=== PATIENT | female | born 1950 | race Caucasian/White ===

== ENCOUNTER 2020-07-02 08:05 | Day surgery (SDC) | payer MEDICARE, OTHER ==
[~2020-07-02 08:05] MED LIST: DIPRIVAN 200 MG/20 ML IV ONE; Ketamine HCl 50 MG/ML ONE
[2020-07-02] MEDS ORDERED: LIDOCAINE HCL 2% 100 MG/5 ML IJ ONE (08:06)
[2020-07-02] MEDS ORDERED: Depo-Medrol 40 MG/ML IM ONE (08:06)
--- NOTE | 2020-07-02 12:08 | XRAY ---
Indication: Bilateral L4-S1 MBB. Intraoperative fluoroscopy was provided for 13 seconds. Single digital spot image submitted for interpretation demonstrates posterior needle tips projecting over the expected left and right L4-S1 nerve roots. Correlate with intraoperative findings/report.
[2020-07-02] MEDS ORDERED: Lactated Ringers 1,000 ML IV ONE (13:47)
--- NOTE | 2020-07-02 16:55 | XRAY ---
13 seconds of fluoroscopy was used in surgery for a bilateral L4-L5, L5-S1 MBB.
== END 2020-07-02 10:03 | disposition home or self-care (01) ==
LOC: SDC-PAIN 08:05
PROVIDERS: ATTEND Psychiatry & Neurology Pain Medicine
DX: M47.817 Spondylosis without myelopathy or radiculopathy, lumbosacral region (principal); E11.9 Type 2 diabetes mellitus without complications; I10 Essential (primary) hypertension; K21.9 Gastro-esophageal reflux disease without esophagitis; F41.8 Other specified anxiety disorders; I25.10 Atherosclerotic heart disease of native coronary artery without angina pectoris; Z79.899 Other long term (current) drug therapy
CPT/HCPCS: 64493; 64494; 72020; 77002; 82962; 99100; J1030; J2704

== ENCOUNTER 2020-07-23 10:01 | Day surgery (SDC) | payer MEDICARE, OTHER ==
[2020-07-23] MEDS ORDERED: BUPIVACAINE 0.5% VIAL IJ ONE (10:02)
[2020-07-23] MEDS ORDERED: Depo-Medrol 40 MG/ML IM ONE (10:02)
[2020-07-23] MEDS ORDERED: DIPRIVAN 200 MG/20 ML IV ONE (11:01)
[2020-07-23] MEDS ORDERED: Ketamine HCl 50 MG/ML ONE (11:03)
--- NOTE | 2020-07-23 12:09 | XRAY ---
Indication: Bilateral SI joint injection. Intraoperative fluoroscopy was provided for 27 seconds. 4 digital spot images submitted for interpretation demonstrates posterior needle tip projecting over the inferior left and right SI joint. Correlate with intraoperative findings/report.
--- NOTE | 2020-07-23 12:21 | XRAY ---
27 seconds fluoroscopy time in surgery for bilateral SI joint injections.
[2020-07-23] MEDS ORDERED: Lactated Ringers 1,000 ML IV ONE (15:14)
== END 2020-07-23 11:26 | disposition home or self-care (01) ==
LOC: SDC-PAIN 10:01
PROVIDERS: ATTEND Psychiatry & Neurology Pain Medicine
DX: M46.1 Sacroiliitis, not elsewhere classified (principal); E11.9 Type 2 diabetes mellitus without complications; I10 Essential (primary) hypertension; K21.9 Gastro-esophageal reflux disease without esophagitis; F41.8 Other specified anxiety disorders; Z79.899 Other long term (current) drug therapy
CPT/HCPCS: 27096; 72202; 77002; 82947; 82962; 99100; J1030; J2704; G0260

== ENCOUNTER 2023-03-18 10:28 | Emergency (ER) | payer MEDICARE, OTHER ==
--- NOTE | 2023-03-18 10:40 | ERPHSYRPT ---
- History of Present Illness Time Seen by Provider: 03/18/23 10:40 Source: patient Exam Limitations: no limitations Physician History: This is a 72-year-old white female patient who excellently slipped and fell in the shower hitting her left side of her head. There was no loss of consciousness. Patient is on Plavix and aspirin and she hit her left ear as well. It is bruised, swollen and a braised. Patient denies syncopal episode, she denies chest pain, she denies abdominal pain. She denies back pain. She does not have any shortness of breath. Patient has a history of hypertension, hyperlipidemia, hypothyroidism, and diabetes. Patient has [address] She also has a history abdominal aortic aneurysm. Occurred: just prior to arrival Reason for Fall: slipped (In the shower) Injuries/Pain Location: head (left side) Loss of Consciousness: no loss of consciousness Quality: aching Severity of Pain-Max: mild Severity of Pain-Current: mild Modifying Factors: Improves With: nothing Associated Symptoms (Fall): headache, neck pain (Mild), No abdominal pain, No back pain, No confusion, No chest pain, No shortness of breath Allergies/Adverse Reactions: Penicillins Allergy (Verified 03/18/23 10:36) Sulfa (Sulfonamide Antibiotics) Allergy (Verified 03/18/23 10:36) Home Medications: Aspirin 81 gm Chew [Baby Aspirin 81 mg Chew] 81 mg PO DAILY 12/12/14 [History] Carvedilol 3.125 mg [Coreg 3.125 MG] 6.25 mg PO BID 12/12/14 [History] Clopidogrel Bisulfate [PLAVIX 75 MG Tablet] 75 mg PO DAILY 12/12/14 [History] Fluoxetine HCl 40 mg PO DAILY 12/12/14 [History] Glucosam/Chondr/Collagn/Hyalur [Glucosamine & Chondroitin Cap] 1 each PO BID 12/12/14 [History] Hydralazine HCl 100 mg PO TID 12/12/14 [History] Levothyroxine Sodium 25 Mcg [Synthroid 25 Mcg] 125 mcg PO DAILY 12/12/14 [History] Losartan Potassium 50 mg PO BID 12/12/14 [History] Multivitamin [Multivitamins] 1 each PO DAILY 12/12/14 [History] Pravastatin Sodium 80 mg PO DAILY 12/12/14 [History] Ranolazine [Ranexa] 500 mg PO BID 12/12/14 [History] Amlodipine Besylate 5 mg [Norvasc 5 mg] 1 tab PO DAILY 03/18/23 [History] Cholecalciferol (Vitamin D3) [Vitamin D] 2,000 units PO DAILY 03/18/23 [History] Cyanocobalamin (Vitamin B-12) [Vitamin B12] 5,000 mcg PO DAILY 03/18/23 [History] Ezetimibe 10 mg [Zetia 10 MG] 1 tab PO DAILY 03/18/23 [History] Lutein [Natural Lutein] 1 tab PO DAILY 03/18/23 [History] [place]-3/Dha/Epa/Fish Oil [Fish Oil 1,000 mg Softgel] 1 tab PO BID 03/18/23 [History] Semaglutide [Ozempic] 2 mg SQ WEEKLY 03/18/23 [History] Terazosin HCl 1 cap PO DAILY 03/18/23 [History] Hx Tetanus, Diphtheria Vaccination/Date Given: Yes (PT UNSURE) Hx Influenza Vaccination/Date Given: Yes (2013) Hx Pneumococcal Vaccination/Date Given: Yes Travel Risk - International Travel Have you traveled outside of the country in past 3 weeks: No - Coronavirus Screening Are you exhibiting any of the following symptoms?: No Close contact with a COVID-19 positive Pt in past 14-21 Days: No - Review of Systems Constitutional: No Symptoms Eyes: No Symptoms Ears, Nose, & Throat: Ear Pain (Left side) Respiratory: No Symptoms Cardiac: No Symptoms Abdominal/Gastrointestinal: No Symptoms Genitourinary Symptoms: No Symptoms Musculoskeletal: Neck Pain, Fall (Mild) Skin: No Symptoms Neurological: Headache (Left side) Psychological: No Symptoms Endocrine: No Symptoms Hematologic/Lymphatic: No Symptoms Immunological/Allergic: No Symptoms All Other Systems: Reviewed and Negative - Past Medical History Pertinent Past Medical History: Yes Neurological History: No Pertinent History Cardiac History: Hypertension Respiratory History: Other Endocrine Medical History: Diabetes Type II, Hypothyroidism Musculoskeletal History: Osteoarthritis Other Medical History: SHE IS GOING TO START WITH A NEUROLOGIST FOR INNER EAR PROBLEMS. SHE WONT SEE THE DOCTOR UNTIL April. SOB AT TIMES. AORTIC ANEURYSM, 4 STINTS, POSSIBLE [place]. BACK SURGERY FOR A RUPTURED DISC. - Past Surgical History Past Surgical History: Yes Cardiac: Cardiac Catheterization, Cardiac Stent Musculoskeletal: Orthopedic Surgery Female Surgical History: Hysterectomy - Social History Smoking Status: Former smoker Exposure to second hand smoke: No Drug Use: none Patient Lives Alone: No - Nursing Vital Signs Nursing Vital Signs: Initial Vital Signs Blood Pressure 137/54 03/18/23 10:44 O2 Sat by Pulse Oximetry 96 03/18/23 10:44 Pain Scale Pain Intensity 4 - Blue Coma Score Best Eye Response ([place]): (4) open spontaneously Best Verbal Response (Blue): (5) oriented Best Motor Response (Blue): (6) obeys commands [place] Total: 15 - Physical Exam General Appearance: no apparent distress, alert, anxiety Head Injury: tenderness (Left ear swollen with two 2 to 3 mm superficial abrasions of the diana) Eye Exam: PERRL/EOMI, eyes nml inspection ENT Exam: airway nml, other (See above) Neck Exam: supple, trachea midline, full range of motion, normal alignment, normal inspection Respiratory/Chest Exam: normal breath sounds, No chest tenderness, No respiratory distress, No ecchymosis, No crepitus Cardiovascular Exam: normal heart sounds, regular rate/rhythm Gastrointestinal Exam: No tenderness Rectal Exam: not done Back Exam: normal inspection, normal range of motion, No CVA tenderness, No vertebral tenderness Extremity Exam: normal inspection, normal range of motion, pelvis stable Neurologic Exam: alert, oriented x 3, cooperative, chief growth officer II-XII nml as tested, normal mood/affect, nml cerebellar function, nml station & gait, sensation nml Skin Exam: normal color, warm, dry, abrasion (See above. Left ear) SpO2 Interpretation: normal O2 Delivery: Room Air - Course Nursing assessment & vital signs reviewed: Yes Ordered Tests: Active Orders 24 hr Category Date Time Status CERVICAL SPINE (2 OR 3 VIEW) Stat Exams 03/18/23 12:48 Completed CERVICAL SPINE WO CONTRAST [CT] Stat Exams 03/18/23 10:59 Completed HEAD WITHOUT CONTRAST [CT] Stat Exams 03/18/23 10:59 Completed - Progress Progress: pain not gone completely, re-examined Progress Note: 03/18/23 11:25 This patient's medical issue is 1 of mod complexity. The level of complexity and the work-up performed is based on review of the patient's past medical history, review of the patient's medication list, review of the patient's drug allergy list, history present illness and physical findings on examination. This patient's work-up includes CT scan of the head and of the neck. The results are pending. 03/18/23 12:11 CT scan of the head without contrast shows no acute intracranial abnormality. CT scan of the cervical spine without contrast shows nondisplaced hairline fractures posterior lateral lamina of C2 bilaterally. There is lordotic straightening positional versus paraspinal spasm. Remaining levels are negative for acute fracture. There are no suspicious bony lesions or spinal canal stenosis. There are degenerative changes present. 03/18/23 12:[address] Brito, the neurosurgeon applications architect at [facility] in [place]. He had reviewed the films. He states that the patient should receive the [place] cervical collar to shower in. In addition she should receive a hard cervical collar. Both collar should not rise above the chin. I discussed this with the patient. He also wants an upright cervical spine x-rays with the hard collar in place to assess the alignment of the spine. If the alignment is normal, the patient may be discharged home with instruction to follow-up at the [facility] neurosurgery trauma clinic. We will contact that clinic and make an appointment for her. Patient was also made aware that she is not to lift more than 5 pounds and not engage in strenuous activity. Again, the above was discussed with the patient prior to her discharge from the emergency department. Counseled pt/family regarding: diagnosis, need for follow-up, rad results Medical Desision Making - Discussion of managment Care discussed with:: specialist (Neurosurgeon Dr. Brito) Agreed on:: Treatment plan, need for follow-up Will see patient: In office (Neurosurgery trauma clinic. The clinic will be contacting the patient to arrange clinic appointment.) - Diagnostic Testing Diagnostic test were ordered, analyzed, and reviewed by me: Yes Radiological Interpretation: Reviewed by me, Teleradiologist Report - Risk of complications The pt has a mod risk of morbidity or mortality based on: Need for prescription drug management - Departure Departure Disposition: Home Clinical Impression: Cervical spine fracture Condition: Stable Critical Care Time: No Referrals: CESAR SCHAFFER MD [Primary Care Provider] - Follow up/PCP as directed Instructions: Neck Fracture (DC), Preventing Falls ED Additional Instructions: Ice pack to tender left ear 3 times a day. Keep the abrasion site clean daily with soap and water. May apply antibiotic ointment once a day to the abrasion sites. Wear your cervical spine collars as discussed. Follow-up with [facility] neurosurgery trauma clinic at your scheduled date and appointment. Take your pain medicine as prescribed. No lifting greater than 5 pounds until cleared by neurosurgery. No strenuous activity until cleared by neurosurgery. The neurosurgery trauma clinic at [facility] phone number is [phone]. They are aware of you and your condition. They have your contact information and they are to call you to set up an appointment date and time. Dr. Brito was the physician we spoke to at [facility] in [place] Prescriptions: Oxycodone HCl/Acetaminophen [Percocet 5-325 mg Tablet] 1 each PO Q8H PRN PRN #6 tablet MDD 3 PRN Reason: Moderate To Severe Pain
--- NOTE | 2023-03-18 11:45 | XRAY ---
Indication: Left temporal head injury following fall. Blood thinner therapy. Multiple contiguous axial images obtained through the head without contrast. Comparison: None Normal appearing brain parenchyma, ventricles, and bony calvarium for patient's age. Visualized paranasal sinuses and mastoid air cells are clear. Impression: Normal CT head without contrast exam.
--- NOTE | 2023-03-18 11:53 | XRAY ---
Indication: Left temporal head injury following fall. Blood thinner therapy. Multiple contiguous axial images obtained through the cervical spine. Sagittal and coronal reformatted images obtained. Comparison: None Osseous structures demineralized consistent with patient's age. Axial images demonstrates nondisplaced hairline fractures posterior lateral lamina of C2 bilaterally. Remaining levels negative for acute fracture, suspicious bony lesions, or spinal canal stenosis. Minimal/mild C2-C7 degenerative endplate spurring and mild multilevel bilateral degenerative facet hypertrophy. Sagittal and coronal reformatted images demonstrates lordotic straightening, positional versus paraspinal spasm. 2 mm anterolisthesis C4 on C5. Minimal/mild C2-C7 disc space narrowing. No acute compression fracture or jumped facet. Normal appearing craniocervical junction. Visualized noncontrasted soft tissues demonstrates mild bilateral carotid calcifications. Lung apices clear. Impression: 1. Nondisplaced hairline fractures posterior lateral lamina of C2 bilaterally. Lordotic straightening, positional vs paraspinal spasm. 2. Chronic findings including osteopenia, multilevel degenerative spondylosis, minimal grade 1 spondylolisthesis C4 on C5, and bilateral carotid calcifications.
--- NOTE | 2023-03-18 13:25 | XRAY ---
Indication: C2 fracture. Comparison: CT cervical spine performed earlier in the day. AP/lateral cervical spine obtained with cervical collar in position again demonstrates osteopenia and mild/moderate multilevel degenerative changes. No new bony, articular, or soft tissue abnormalities.
[2023-03-18 13:55] VITALS: BP 161/69; PULSE 88; O2SAT 98
== END 2023-03-18 13:54 | disposition home or self-care (01) ==
LOC: ED 10:28
DX: S12.191A Other nondisplaced fracture of second cervical vertebra, initial encounter for closed fracture (principal); W18.2XXA Fall in (into) shower or empty bathtub, initial encounter; Y93.E1 Activity, personal bathing and showering; Y92.002 Bathroom of unspecified non-institutional (private) residence as the place of occurrence of the external cause; R51.9 Headache, unspecified; H92.02 Otalgia, left ear; I10 Essential (primary) hypertension; E78.5 Hyperlipidemia, unspecified; E11.9 Type 2 diabetes mellitus without complications; Z79.02 Long term (current) use of antithrombotics/antiplatelets; Z79.85 Long-term (current) use of injectable non-insulin antidiabetic drugs; Z79.899 Other long term (current) drug therapy
CPT/HCPCS: 70450; 72040; 72125; 99283; L0172

== ENCOUNTER 2024-10-17 14:03 | Emergency (ER) | payer MEDICARE, OTHER ==
[2024-10-17 16:37] VITALS: PULSE 62; TEMP 98.3
--- NOTE | 2024-10-17 17:21 | ERPHSYRPT ---
- History of Present Illness Time Seen by Provider: 10/17/24 16:33 Source: patient Exam Limitations: no limitations Patient Subjective Stated Complaint: pt turned around in her kitchen and fell and busted her right side of forehead open Triage Nursing Assessment: Pt brought self to the ER, hypertensive, rates pain as 2/10, pulses normal, skin n/w/d, denies LOC, denies N&V, no difficulty breathing, approx 1 cm laceration to the right lateral forehead, doesn't appear to be in any distress Physician History: 74 years old female with history of coronary artery disease status post stenting, hypertension, hyperlipidemia, diabetes mellitus, peripheral neuropathy, was putting some stuff in the oven, turned around and lost balance leading to fall. She has a laceration on the right orbital ridge area. Denies any loss of consciousness. Patient denies having numbness tingling or focal weakness. She denies having feeling of dizziness lightheadedness, chest pain palpitations or shortness of breath before or after the fall. No visual changes or difficulty movements of eyeball. No facial numbness or difficulty speech. Allergies/Adverse Reactions: Penicillins Allergy (Verified 10/17/24 16:37) Sulfa (Sulfonamide Antibiotics) Allergy (Verified 10/17/24 16:37) Home Medications: Aspirin 81 gm Chew [Baby Aspirin 81 mg Chew] 81 mg PO DAILY 12/12/14 [History] Carvedilol 3.125 mg [Coreg 3.125 MG] 6.25 mg PO BID 12/12/14 [History] Clopidogrel Bisulfate [PLAVIX 75 MG Tablet] 75 mg PO DAILY 12/12/14 [History] Fluoxetine HCl 40 mg PO DAILY 12/12/14 [History] Glucosam/Chondr/Collagn/Hyalur [Glucosamine & Chondroitin Cap] 1 each PO BID 12/12/14 [History] Hydralazine HCl 100 mg PO TID 12/12/14 [History] Levothyroxine Sodium 25 Mcg [Synthroid 25 Mcg] 125 mcg PO DAILY 12/12/14 [History] Losartan Potassium 50 mg PO BID 12/12/14 [History] Multivitamin [Multivitamins] 1 each PO DAILY 12/12/14 [History] Pravastatin Sodium 80 mg PO DAILY 12/12/14 [History] Ranolazine [Ranexa] 500 mg PO BID 12/12/14 [History] Amlodipine Besylate 5 mg [Norvasc 5 mg] 1 tab PO DAILY 03/18/23 [History] Cholecalciferol (Vitamin D3) [Vitamin D] 2,000 units PO DAILY 03/18/23 [History] Cyanocobalamin (Vitamin B-12) [Vitamin B12] 5,000 mcg PO DAILY 03/18/23 [History] Ezetimibe 10 mg [Zetia 10 MG] 1 tab PO DAILY 03/18/23 [History] Lutein [Natural Lutein] 1 tab PO DAILY 03/18/23 [History] [place]-3/Dha/Epa/Fish Oil [Fish Oil 1,000 mg Softgel] 1 tab PO BID 03/18/23 [History] Semaglutide [Ozempic] 2 mg SQ WEEKLY 03/18/23 [History] Terazosin HCl 1 cap PO DAILY 03/18/23 [History] Hx Tetanus, Diphtheria Vaccination/Date Given: Yes (PT UNSURE) Hx Influenza Vaccination/Date Given: Yes (2013) Hx Pneumococcal Vaccination/Date Given: Yes Travel Risk - International Travel Have you traveled outside of the country in past 3 weeks: No - Emerging Infectious Disease Are you exhibiting symptoms associated with any current EIDs: No - Review of Systems Constitutional: No Symptoms Eyes: No Symptoms Ears, Nose, & Throat: No Symptoms Respiratory: No Symptoms Cardiac: No Symptoms Abdominal/Gastrointestinal: No Symptoms Genitourinary Symptoms: No Symptoms Musculoskeletal: Fall, Injury Skin: Skin Lesions Neurological: Headache Endocrine: No Symptoms Hematologic/Lymphatic: No Symptoms - Past Medical History Pertinent Past Medical History: Yes Neurological History: No Pertinent History Cardiac History: Hypertension Respiratory History: Other Endocrine Medical History: Diabetes Type II, Hypothyroidism Musculoskeletal History: Osteoarthritis Psycho-Social History: Anxiety, Depression Other Medical History: AORTIC ANEURYSM, 4 STINTS, POSSIBLE [place] BACK SURGERY FOR A RUPTURED DISC. - Past Surgical History Past Surgical History: Yes Cardiac: Cardiac Catheterization, Cardiac Stent Musculoskeletal: Orthopedic Surgery Female Surgical History: Hysterectomy Other Surgical History: BACK SURGERY FOR A RUPTURED DISC. - Social History Smoking Status: Former smoker Exposure to second hand smoke: No Drug Use: none Patient Lives Alone: No - Social Determinants of Health Will the patient participate in the screening: Yes Do you worry about a steady place to live?: No Do you have any problems with any of the following?: No known problems In the past 12 months,have you had to go without utilities?: No Transportation Issues: No Has anyone in your support network made you feel unsafe?: No Have you or anyone in your house had to go without enough: No - Nursing Vital Signs Nursing Vital Signs: Initial Vital Signs Temperature 98.3 F 10/17/24 16:29 Pulse Rate 62 10/17/24 16:29 Blood Pressure 160/76 10/17/24 16:29 O2 Sat by Pulse Oximetry 97 10/17/24 16:29 Pain Scale Pain Intensity 2 - Blue Coma Score Best Eye Response ([place]): (4) open spontaneously Best Verbal Response ([place]): (5) oriented Best Motor Response ([place]): (6) obeys commands [place] Total: 15 - Physical Exam General Appearance: no apparent distress, alert Head Injury: lacerations (2 cm laceration lateral right eyebrow area. No active spurting or oozing. No step in deformity. Intact range of motion of [place]) Eye Exam: PERRL/EOMI, eyes nml inspection, No scleral icterus ENT Exam: airway nml, No evidence of ENT injury, No dental injury Neck Exam: supple, trachea midline, full range of motion, normal alignment, normal inspection Respiratory/Chest Exam: normal breath sounds, respiratory distress, No chest t enderness Cardiovascular Exam: normal heart sounds, regular rate/rhythm Gastrointestinal Exam: soft, normal bowel sounds, No tenderness Back Exam: normal inspection, normal range of motion Extremity Exam: normal inspection, normal range of motion Neurologic Exam: alert, oriented x 3, cooperative, excellence leader II-XII nml as tested, nml cerebellar function, nml station & gait, sensation nml, No motor deficits Skin Exam: normal color SpO2 Interpretation: normal SpO2: 97 O2 Delivery: Room Air Procedures - Laceration/Wound Repair Right Frontal Time of Procedure: 19:18 Wound Location: Right, forehead Wound Length (cm): 2 Wound's Depth, Shape: into muscle, linear Wound Explored: clean Irrigated: Yes Hibiclens Prep: Yes Anesthesia: 1% Lidocaine Volume Anesthetic (ccs): 3 Wound Repaired With: sutures Suture Size/Type: 5-0, ethilon Number of Sutures: 5 Layer Closure?: No Sterile Dressing Applied?: Yes Splint Applied?: No Ordered Tests: Active Orders 24 hr Category Date Time Status CERVICAL SPINE WO CONTRAST [CT] Stat Exams 10/17/24 17:15 Taken HEAD WITHOUT CONTRAST [CT] Stat Exams 10/17/24 17:15 Taken Medication Summary Discontinued Medications Generic Name Dose Route Start Last Admin Trade Name Matthew PRN Reason Stop Dose Admin Bacitracin Zinc Confirm 10/17/24 19:19 Bacitracin Packet 1 Each Pckt Administered 10/17/24 19:20 Dose 1 each .ROUTE .STK-MED ONE Diphtheria/Tetanus/Acell Pertussis 0.5 ml 10/17/24 17:16 10/17/24 17:58 Tdap --Diph,Pertuss(Acell),Tet Vac/Pf 0.5 Ml Vial IM 10/17/24 17:17 0.5 ml .ONCE ONE Administration Diphtheria/Tetanus/Acell Pertussis Confirm 10/17/24 17:56 Tdap --Diph,Pertuss(Acell),Tet Vac/Pf 0.5 Ml Vial Administered 10/17/24 17:57 Dose 0.5 ml IM .STK-MED ONE - Progress Progress: improved Progress Note: 74 years old is evaluated in the ER for ground-level fall which clearly seems to be mechanical. Patient has nonfocal neuroexam. Has intact range of motion of her right highball. Laceration is repaired. Obtain CT head and cervical spine which are negative for any acute trauma findings. Tetanus is updated. Discussed head injury precaution observation and outpatient follow-up. Discussed signs symptoms of worsening needing return to ER which she seems understanding. Stable for discharge. Counseled pt/family regarding: lab results, diagnosis, need for follow-up Medical Desision Making - Diagnostic Testing Diagnostic test were ordered, analyzed, and reviewed by me: Yes Radiological Interpretation: Reviewed by me, Teleradiologist Report - Risk of complications The pt has a mod risk of morbidity or mortality based on: Need for prescription drug management, Need for minor surgical intervention in patient with know risk factors - Departure Departure Disposition: Home Clinical Impression: Forehead laceration, Fall Condition: Stable Critical Care Time: No Referrals: CESAR SCHAFFER MD [Primary Care Provider] - Follow up with PCP 1 day Instructions: Laceration Repair With Stitches (DC), Head injury observation in adults Additional Instructions: Intermittent ice application. Tylenol as needed. Follow-up with primary care for reevaluation. Follow head injury instructions and return to ER for any worsening. Suture removal in 5 to 7 days.
[2024-10-17] MEDS ORDERED: Adacel Vial IM ONE (17:56)
[2024-10-17] MEDS: Adacel Vial IM ONE (17:58)
[2024-10-17 18:51] VITALS: BP 172/81
[2024-10-17] MEDS ORDERED: BACIGUENT PACKET ONE (19:19)
[2024-10-17 19:22] VITALS: O2SAT 97
--- NOTE | 2024-10-18 08:39 | XRAY ---
Indication: Right orbital injury following fall. Multiple contiguous axial images obtained through the head without contrast. Comparison: July 30, 2024 Normal appearing brain parenchyma, ventricles, and bony calvarium for patient's age. Visualized paranasal sinuses and mastoid air cells are clear. Impression: Continued normal CT head without contrast exam.
--- NOTE | 2024-10-18 08:42 | XRAY ---
Indication: Right orbital injury following fall. Multiple contiguous axial images obtained through the cervical spine. Sagittal and coronal reformatted images obtained. Comparison: July 30, 2024 Axial images again negative for acute fracture, suspicious bony lesions, or spinal canal stenosis. There remains osteopenia, minimal/mild C2-C7 degenerative endplate spurring, and bilateral degenerative facet hypertrophy. Sagittal and coronal reformatted images again demonstrates lordotic straightening and minimal grade 1 anterolisthesis C4 on C5. No acute compression fracture or jumped facet. Normal appearing craniocervical junction. Visualized noncontrasted soft tissues again demonstrates mild bilateral carotid calcifications. Lung apices clear. Impression: 1. Continued negative acute fracture/subluxation. 2. Again chronic findings including osteopenia, multilevel degenerative spondylosis, grade 1 listhesis C4 on C5, and bilateral carotid calcifications.
== END 2024-10-17 19:38 | disposition home or self-care (01) ==
LOC: ED 14:03
DX: S01.81XA Laceration without foreign body of other part of head, initial encounter (principal); W18.30XA Fall on same level, unspecified, initial encounter; Y93.G3 Activity, cooking and baking; Y92.000 Kitchen of unspecified non-institutional (private) residence as the place of occurrence of the external cause; I10 Essential (primary) hypertension; E11.9 Type 2 diabetes mellitus without complications; Z79.02 Long term (current) use of antithrombotics/antiplatelets; Z79.85 Long-term (current) use of injectable non-insulin antidiabetic drugs; Z79.899 Other long term (current) drug therapy; Z23 Encounter for immunization
CPT/HCPCS: 12001; 70450; 72125; 90471; 90715; 99284; A9270-GY

== ENCOUNTER 2024-10-24 12:15 | Emergency (ER) | payer MEDICARE, OTHER ==
--- NOTE | 2024-10-24 12:48 | ERPHSYRPT ---
- History of Present Illness Time Seen by Provider: 10/24/24 12:47 Source: patient Exam Limitations: no limitations Physician History: This is a 74-year-old white female patient who arrives by private vehicle to be evaluated in the emergency department because of an elevated D-dimer that was drawn yesterday and patient was notified today of that elevated level. Patient fell several days ago and hit her head. She had no other complaints at the time. However, she complains of mild shortness of breath and pain in her right lower extremity. She describes as the pain as achiness in the right lower extremity. The D-dimer level was 1.13 at the out side facility that I evaluated. The normal level is less than 0.50). Patient denies chest pain. Patient has a history of hypertension, hypothyroidism, hyperlipidemia and depression. Timing/Duration: day(s) (Several days ago) Severity: mild Associated Symptoms: shortness of breath, No cough, No chest pain Allergies/Adverse Reactions: Penicillins Allergy (Verified 10/24/24 12:26) Sulfa (Sulfonamide Antibiotics) Allergy (Verified 10/17/24 16:37) Home Medications: Aspirin 81 gm Chew [Baby Aspirin 81 mg Chew] 81 mg PO DAILY 12/12/14 [History] Carvedilol 3.125 mg [Coreg 3.125 MG] 6.25 mg PO BID 12/12/14 [History] Fluoxetine HCl 40 mg PO DAILY 12/12/14 [History] Glucosam/Chondr/Collagn/Hyalur [Glucosamine & Chondroitin Cap] 1 each PO BID 12/12/14 [History] Hydralazine HCl 100 mg PO TID 12/12/14 [History] Levothyroxine Sodium 25 Mcg [Synthroid 25 Mcg] 125 mcg PO DAILY 12/12/14 [History] Losartan Potassium 50 mg PO BID 12/12/14 [History] Multivitamin [Multivitamins] 1 each PO DAILY 12/12/14 [History] Pravastatin Sodium 80 mg PO DAILY 12/12/14 [History] Ranolazine [Ranexa] 500 mg PO BID 12/12/14 [History] Amlodipine Besylate 5 mg [Norvasc 5 mg] 1 tab PO DAILY 03/18/23 [History] Cholecalciferol (Vitamin D3) [Vitamin D] 2,000 units PO DAILY 03/18/23 [History] Cyanocobalamin (Vitamin B-12) [Vitamin B12] 5,000 mcg PO DAILY 03/18/23 [History] Ezetimibe 10 mg [Zetia 10 MG] 1 tab PO DAILY 03/18/23 [History] Lutein [Natural Lutein] 1 tab PO DAILY 03/18/23 [History] [place]-3/Dha/Epa/Fish Oil [Fish Oil 1,000 mg Softgel] 1 tab PO BID 03/18/23 [History] Semaglutide [Ozempic] 2 mg SQ WEEKLY 03/18/23 [History] Terazosin HCl 1 cap PO DAILY 03/18/23 [History] Dapagliflozin Propanediol [Farxiga] 1 tab PO CLARIFY 10/24/24 [History] Hx Tetanus, Diphtheria Vaccination/Date Given: Yes (PT UNSURE) Hx Influenza Vaccination/Date Given: Yes (2013) Hx Pneumococcal Vaccination/Date Given: Yes Travel Risk - International Travel Have you traveled outside of the country in past 3 weeks: No - Emerging Infectious Disease Are you exhibiting symptoms associated with any current EIDs: No - Review of Systems Constitutional: No Symptoms Eyes: No Symptoms Ears, Nose, & Throat: No Symptoms Respiratory: Dyspnea Cardiac: No Symptoms Abdominal/Gastrointestinal: No Symptoms Genitourinary Symptoms: No Symptoms Musculoskeletal: Other (Right lower extremity achiness) Skin: No Symptoms Neurological: No Symptoms Psychological: No Symptoms Endocrine: No Symptoms Hematologic/Lymphatic: No Symptoms Immunological/Allergic: No Symptoms All Other Systems: Reviewed and Negative - Past Medical History Pertinent Past Medical History: Yes Neurological History: No Pertinent History Cardiac History: Hypertension Respiratory History: Other Endocrine Medical History: Diabetes Type II, Hypothyroidism Musculoskeletal History: Osteoarthritis Psycho-Social History: Anxiety, Depression Other Medical History: AORTIC ANEURYSM, 4 STINTS, POSSIBLE [place]. BACK SURGERY FOR A RUPTURED DISC. - Past Surgical History Past Surgical History: Yes Cardiac: Cardiac Catheterization, Cardiac Stent Musculoskeletal: Orthopedic Surgery Female Surgical History: Hysterectomy Other Surgical History: BACK SURGERY FOR A RUPTURED DISC. - Social History Smoking Status: Former smoker Exposure to second hand smoke: No Drug Use: none Patient Lives Alone: No - Social Determinants of Health Will the patient participate in the screening: Yes Do you worry about a steady place to live?: No In the past 12 months,have you had to go without utilities?: No Transportation Issues: No Has anyone in your support network made you feel unsafe?: No Have you or anyone in your house had to go without enough: No - Nursing Vital Signs Nursing Vital Signs: Initial Vital Signs Temperature 97.5 F 10/24/24 12:29 Pulse Rate 65 10/24/24 12:29 Respiratory Rate 24 10/24/24 12:29 Blood Pressure 147/69 10/24/24 12:29 Pain Scale Pain Intensity 3 - Physical Exam General Appearance: no apparent distress, alert, anxiety Eye Exam: PERRL/EOMI, eyes nml inspection Ears, Nose, Throat Exam: normal ENT inspection, moist mucous membranes Neck Exam: normal inspection, non-tender, supple, full range of motion Respiratory Exam: normal breath sounds, lungs clear, airway intact, No chest tenderness, No respiratory distress Cardiovascular Exam: regular rate/rhythm, normal heart sounds, normal peripheral pulses Gastrointestinal/Abdomen Exam: soft, normal bowel sounds, No tenderness Pelvic Exam: not done Rectal Exam: not done Back Exam: normal inspection, normal range of motion, No CVA tenderness, No vertebral tenderness Extremity Exam: normal inspection, normal range of motion, pelvis stable Neurologic Exam: alert, oriented x 3, cooperative, business advisor II-XII nml as tested, nml cerebellar function, nml station & gait, sensation nml Skin Exam: normal color, warm, dry Lymphatic Exam: No adenopathy SpO2 Interpretation: normal O2 Delivery: Room Air - Course Nursing assessment & vital signs reviewed: Yes Ordered Tests: Active Orders 24 hr Category Date Time Status EKG-ER Only STAT Care 10/24/24 13:27 Active IV Insertion STAT Care 10/24/24 13:27 Active CHEST WITH CONTRAST [CT] Stat Exams 10/24/24 13:47 Completed VENOUS UNILAT/LIMITED EXTREMIT [US] Stat Exams 10/24/24 13:29 Completed CBC W DIFF Stat Lab 10/24/24 14:06 Completed CMP Stat Lab 10/24/24 14:06 Completed TROPONIN Q4H Lab 10/24/24 14:06 Completed TROPONIN Q4H Lab 10/24/24 17:30 Ordered TROPONIN Q4H Lab 10/24/24 21:30 Ordered Medication Summary Generic Name Dose Route Start Last Admin Trade Name Freq PRN Reason Stop Dose Admin Sodium Chloride 500 mls @ 100 mls/hr 10/24/24 14:00 10/24/24 15:28 Sodium Chloride 0.9% 500 Ml IV 11/23/24 13:59 Infused .Q5H [facility] Infusion Lab/Rad Data: Laboratory Result Diagrams 10/24/24 14:06 10/24/24 14:06 Laboratory Results 10/24/24 10/24/24 10/24/24 Range/Units 14:06 14:06 14:06 WBC 5.8 (3.98-10.04) x10^3/uL RBC 3.97 (3.93-5.22) x10^6/uL Hgb 12.9 (11.2-15.7) g/dL Hct 37.8 (34.1-44.9) % MCV 95.2 H (79.4-94.8) fL MCH 32.5 H (25.6-32.2) pg MCHC 34.1 (32.2-35.5) g/dL RDW 12.6 (11.7-14.4) % Plt Count 245 (182-369) x10^3/uL MPV 9.0 L (9.4-12.3) fL Gran % 64.2 (34.0-71.1) % Immature Gran % (Auto) 0.3 (0.001-0.429) % Nucleat RBC Rel Count 0.0 (0.00-0.2) % Eos # (Auto) 0.09 (0.04-0.36) x10^3/uL Immature Gran # (Auto) 0.02 (0.001-0.031) x10^3u/L Absolute Lymphs (auto) 1.34 (1.18-3.74) x10^3/uL Absolute Monos (auto) 0.59 (0.24-0.86) x10^3/uL Absolute Nucleated RBC 0.00 (0.00-0.012) x10^3u/L Lymphocytes % 23.2 (19.3-51.7) % Monocytes % 10.2 (4.7-12.5) % Eosinophils % 1.6 (0.7-5.8) % Basophils % 0.5 (0.1-1.2) % Absolute Granulocytes 3.70 (1.56-6.13) x10^3/uL Basophils # 0.03 (0.01-0.08) x10^3/uL Sodium 136 (135-145) mmol/L Potassium 4.2 (3.5-5.1) mmol/L Chloride 103 (98-107) mmol/L Carbon Dioxide 23 (22-30) mmol/L Anion Gap 14.2 (5-15) MEQ/L BUN 22 H (7-17) mg/dL Creatinine 1.04 (0.52-1.04) mg/dL Estimated GFR 55.7 ML/MIN Glucose 89 (74-106) mg/dL Calcium 9.5 (8.4-10.2) mg/dL Total Bilirubin 0.50 (0.2-1.3) mg/dL AST 33 (14-36) U/L ALT 28 (0-35) U/L Alkaline Phosphatase 59 (38-126) U/L Troponin I < 0.012 (0.000-0.033) ng/mL Serum Total Protein 7.1 (6.3-8.2) g/dL Albumin 4.3 (3.5-5.0) g/dL - Progress Progress: improved, re-examined Progress Note: 10/24/24 14:41 My medical decision making and the assignment of moderate complexity to this patient's medical issue today is based on review of the patient's past medical history, review of the patient's medication list, reviewed patient drug allergy list, history present illness and physical findings on examination. The workup today includes placement of intravenous line, CBC, CMP, venous Doppler right lower extremity and CT scan of the chest with contrast to evaluate for pulmonary embolus. We will also provide the patient with low rate crystalloid infusion. Differential diagnosis includes but is not limited to muscle skeletal pain, DVT, pulmonary embolus, pneumonia 10/24/24 15:29 Interpreted the patient's laboratory data results. Based on the laboratory data results, there are no acute, emergent medical issues. The venous Doppler of the right lower extremity was interpreted by the radi ologist. The interpretation states negative DVT in right lower extremity. The CT scan of the chest with contrast was interpreted by the radiologist and I reviewed the impression. The impression states no obvious pulmonary embolus. No acute cardiopulmonary abnormalities. Counseled pt/family regarding: lab results, diagnosis, need for follow-up, rad results Medical Desision Making - Diagnostic Testing Diagnostic test were ordered, analyzed, and reviewed by me: Yes Radiological Interpretation: Reviewed by me, Teleradiologist Report - Risk of complications Low Risk: Low risk of morbidity from additional dx testing or treatment - Departure Departure Disposition: Home Clinical Impression: Elevated d-dimer, Shortness of breath, Right leg pain Condition: Stable Critical Care Time: No Referrals: CESAR SCHAFFER MD [Primary Care Provider] - Follow up/PCP as directed
[2024-10-24 12:51] VITALS: TEMP 97.5
[2024-10-24 14:07] LABS: BASOPHIL % 0.5 % (0.1-1.2); Basophil (Absolute #) 0.03 x10^3/uL (0.01-0.08); Eosinophil % 1.6 % (0.7-5.8); Eosinophil (Absolute #) 0.09 x10^3/uL (0.04-0.36); Hematocrit 37.8 % (34.1-44.9); Hemoglobin 12.9 g/dL (11.2-15.7); IMMATURE GRAN # 0.02 x10^3u/L (0.001-0.031); IMMATURE GRAN % 0.3 % (0.001-0.429); Lymphocyte (Absolute #) 1.34 x10^3/uL (1.18-3.74); Lymphocytes % 23.2 % (19.3-51.7); Mean Cell Volume 95.2 fL (79.4-94.8); Mean Corpuscular Hemoglobin 32.5 pg (25.6-32.2); Mean Corpuscular Hgb Concent. 34.1 g/dL (32.2-35.5); Monocyte (Absolute #) 0.59 x10^3/uL (0.24-0.86); Monocytes % 10.2 % (4.7-12.5); Neutrophil % 64.2 % (34.0-71.1); Platelet Count 245 x10^3/uL (182-369); Red Blood Count 3.97 x10^6/uL (3.93-5.22); Red Cell Distribution Width 12.6 % (11.7-14.4); White Blood Count 5.8 x10^3/uL (3.98-10.04)
--- NOTE | 2024-10-24 14:08 | XRAY ---
Indication: Right leg pain. Two-dimensional sonogram and color Doppler imaging major venous vessels right leg performed. Comparison: None No thrombus seen in the examined deep venous vessels right leg including greater saphenous vein. Veins demonstrate normal compressibility. Venous waveforms are normal with and without augmentation. Impassion: Right leg negative for DVT.
[2024-10-24 14:22] LABS: ALBUMIN 4.3 g/dL (3.5-5.0); ANION GAP 14.2 MEQ/L (5-15); BILIRUBIN,TOTAL 0.5 mg/dL (0.2-1.3); Calcium 9.5 mg/dL (8.4-10.2); Creatinine 1 1.04 mg/dL (0.52-1.04); EST GLOMERULAR FILTRATION RATE 55.7 ML/MIN; Potassium 4.2 mmol/L (3.5-5.1); Total Protein 7.1 g/dL (6.3-8.2)
[2024-10-24] MEDS ORDERED: Sodium Chloride 0.9% 500 ML 500 ML IV ONE (14:25)
[2024-10-24] MEDS: Sodium Chloride 0.9% 500 ML 500 ML IV SCH (14:29)
[2024-10-24 15:11] VITALS: O2SAT 97
--- NOTE | 2024-10-24 15:22 | XRAY ---
Indication: Elevated d-dimer. Short of breath. Multiple contiguous axial images obtained through the chest using 80 cc Isovue 370 contrast and PE protocol. Comparison: None Good opacification pulmonary arteries to include lobar and segmental branches. Mild respiration artifact limits evaluation of distal lobar and segmental branches. No obvious pulmonary embolus. Heart not enlarged. Aorta mildly arteriosclerotic without aneurysm/dissection. Small distal paraesophageal calcified nodes. No pathologic mediastinal/hilar lymphadenopathy. Small hiatal hernia. Lungs demonstrates small left lower lobe calcified granuloma and minimal bilateral dependent atelectasis. No infiltrate, effusion, or pneumothorax. Bony thorax intact with mild degenerative changes throughout spine. Limited upper abdomen demonstrates 1 cm gallstone and a few bilateral renal cysts, largest left mid kidney measuring 4 cm. Impression: 1. Respiration artifact limits pulmonary embolus evaluation. No obvious pulmonary embolus or acute cardiopulmonary abnormalities.. 2. Chronic findings including hiatal hernia, degenerative spondylosis, gallstone, bilateral renal cysts, and old granulomatous disease.
[2024-10-24 15:41] VITALS: BP 164/77; PULSE 67; RESP 17
== END 2024-10-24 16:04 | disposition home or self-care (01) ==
LOC: ED 12:15
DX: R79.1 Abnormal coagulation profile (principal); R06.02 Shortness of breath; M79.604 Pain in right leg; I10 Essential (primary) hypertension; E78.5 Hyperlipidemia, unspecified; E11.9 Type 2 diabetes mellitus without complications; Z79.85 Long-term (current) use of injectable non-insulin antidiabetic drugs; Z79.84 Long term (current) use of oral hypoglycemic drugs; Z79.899 Other long term (current) drug therapy
CPT/HCPCS: 36415; 71260; 80053; 84484; 85025; 93005; 93971; 96360; 99285